=== PATIENT | female | born 1955 | race Hispanic/Latino ===

== ENCOUNTER 2023-11-08 13:38 | Emergency (ER) | payer MEDICARE, OTHER ==
[~2023-11-08] VITALS: Ht 162.6 cm; Wt 68.7 kg
[~2023-11-08 13:38] MED LIST: LOSARTAN-HCTZ1 EAC1 PO; METFORMIN HCL1000 MG PO; SIMVASTATIN20 MG PO
[2023-11-08] MEDS ORDERED: DOXYCYCLINE HY100 MG PO (14:05)
[2023-11-08] MEDS ORDERED: TYLENOL325 MG PO (14:05)
[2023-11-08 15:53] VITALS: O2SAT 98
[2023-11-08] MEDS ORDERED: TRULICITY1.5 MG/0.5 (18:52)
[2023-11-08] MEDS ORDERED: BASAGLAR K100 UNIT/1 SQ (18:52)
[2023-11-08] MEDS ORDERED: CRESTOR10 MG PO (18:52)
[2023-11-08] MEDS ORDERED: XIGDUO XR 10 M1 EAC1 (18:52)
== END 2023-11-08 15:53 | disposition home or self-care (01) ==
LOC: FSED 13:44
DX: L72.3 Sebaceous cyst (principal); L08.89 Other specified local infections of the skin and subcutaneous tissue
CPT/HCPCS: 10061; 99283